=== PATIENT | female | born 1950 | race Caucasian/White ===

== ENCOUNTER 2021-03-30 09:43 | Observation (INO) ==
[2021-03-30] MEDS ORDERED: *HR* Metoprolol 5 MG/5 ML VIAL IVP ONE (10:51)
[2021-03-30] MEDS ORDERED: Furosemide 40 MG/4 ML VIAL IVP ONE (10:51)
[2021-03-30 11:30] LABS: Basophils # 0.1 K/mcL (0.0-0.2); Basophils % 0.6 %; Eosinophils # 0.2 K/mcL (0.0-0.6); Eosinophils % 2.3 %; Hematocrit 28.8 % (35.3-44.9); Hemoglobin 9.3 g/dL (11.5-15.4); Immature Granulocytes % 0.8 % (0-4); Lymphocytes # 0.9 K/mcL (0.6-4.6); Lymphocytes % 9.4 %; Mean Corpuscular HGB Conc 32.3 g/dL (31.6-35.5); Mean Corpuscular Hemoglobin 33.9 pg (28.0-33.3); Mean Corpuscular Volume 105.1 fL (83.0-100.0); Mean Platelet Volume 8.6 fL (9.4-12.4); Monocytes # 0.7 K/mcL (0.0-1.3); Neutrophils # 7.2 K/mcL (1.6-8.9); Platelet Count 330 K/mcL (140-400); Red Blood Count 2.74 M/mcL (3.82-4.97); Red Cell Distribution Width 15.1 % (11.5-14.5); Segmented Neutrophils % 78.9 %; White Blood Count 9.1 K/mcL (4.3-11.1)
[2021-03-30 11:32] LABS: INR 1.6; Prothrombin Time 17.8 Seconds (9.4-12.1)
[2021-03-30 11:48] LABS: BUN/Creatinine Ratio 25 (6-26); Blood Urea Nitrogen 20 mg/dL (8-23); Calcium 8.7 mg/dL (8.6-10.3); Carbon Dioxide 21 mEq/L (23-29); Chloride 106 mEq/L (98-107); Glucose 271 mg/dL (70-105); Osmolality,Calculated 292 (280-300); Potassium 4.8 mEq/L (3.5-5.1); Sodium 135 mEq/L (136-145); Troponin I < 0.03 ng/mL (< 0.04); eGFR For African Americans > 60 (> 60); eGFR For Non-African Americans > 60 (> 60)
[2021-03-30 12:02] LABS: Thyroid Stimulating Hormone 2.172 mcIU/mL (0.340-5.600)
[2021-03-30] MEDS ORDERED: cefTRIAXone 1,000 MG in Water for inj. (sterile) 10 ML IVP ONE (12:40)
[2021-03-30] MEDS ORDERED: Acetaminophen 325 MG TABLET PO PRN (14:13)
[2021-03-30] MEDS ORDERED: Naloxone 0.4 MG/ML INJ IVP PRN (14:13)
[2021-03-30] MEDS ORDERED: Melatonin 3 MG TABLET PO PRN (14:13)
[2021-03-30] MEDS ORDERED: Dextrose Gel 15 GM/37.5 ML TUBE PO PRN ×2 (14:17)
[2021-03-30] MEDS ORDERED: *HR* Dextrose 50 % in Water (Vial) 50 ML VIAL IVP PRN (14:17)
[2021-03-30] MEDS ORDERED: D5% in Water 1,000 ML IVC PRN (14:17)
[2021-03-30] MEDS ORDERED: Perflutren Lipid Microsphere 1.3 ML in 0.9 % Sodium Chloride 8.7 ML IVP PRN (14:18)
[2021-03-30] MEDS ORDERED: Metoprolol XL (24 HR) Succ 25 MG TAB.ER.24H PO ONE (15:29)
[2021-03-30] MEDS ORDERED: Metoprolol XL (24 HR) Succ 25 MG TAB.ER.24H PO SCH (15:30)
[2021-03-30] MEDS: Insulin LISPRO 300 UNITS/3 ML VIAL SUBQ SCH (17:29)
[2021-03-30] MEDS: *HR* Enoxaparin 100 MG/ML SYRINGE SQ SCH (17:30)
[2021-03-30] MEDS ORDERED: Warfarin perPT PO PRN (18:00)
[2021-03-30] MEDS ORDERED: *HR* Warfarin 10 MG TABLET PO ONE (18:00)
[2021-03-30] MEDS ORDERED: Insulin LISPRO 300 UNITS/3 ML VIAL SUBQ SCH (21:00)
[2021-03-30] MEDS: Furosemide 40 MG/4 ML VIAL IVP SCH (21:03)
[2021-03-31 05:26] LABS: Basophils # 0.1 K/mcL (0.0-0.2); Basophils % 0.6 %; Eosinophils # 0.2 K/mcL (0.0-0.6); Eosinophils % 2.9 %; Hematocrit 25.4 % (35.3-44.9); Hemoglobin 8.2 g/dL (11.5-15.4); Immature Granulocytes % 0.7 % (0-4); Lymphocytes # 1.2 K/mcL (0.6-4.6); Lymphocytes % 14.9 %; Mean Corpuscular HGB Conc 32.3 g/dL (31.6-35.5); Mean Corpuscular Hemoglobin 33.9 pg (28.0-33.3); Mean Platelet Volume 8.7 fL (9.4-12.4); Monocytes # 0.6 K/mcL (0.0-1.3); Monocytes % 7.8 %; Platelet Count 315 K/mcL (140-400); Red Blood Count 2.42 M/mcL (3.82-4.97); Red Cell Distribution Width 15.5 % (11.5-14.5); Segmented Neutrophils % 73.1 %; White Blood Count 8.2 K/mcL (4.3-11.1)
[2021-03-31 05:41] LABS: BUN/Creatinine Ratio 21 (6-26); Blood Urea Nitrogen 22 mg/dL (8-23); Calcium 8.3 mg/dL (8.6-10.3); Carbon Dioxide 22 mEq/L (23-29); Chloride 105 mEq/L (98-107); Glucose 133 mg/dL (70-105); Osmolality,Calculated 283 (280-300); Potassium 4.6 mEq/L (3.5-5.1); Sodium 134 mEq/L (136-145); eGFR For African Americans > 60 (> 60); eGFR For Non-African Americans 53 (> 60)
[2021-03-31 05:42] LABS: INR 1.8; Prothrombin Time 20.7 Seconds (9.4-12.1)
[2021-03-31] MEDS: *HR* Enoxaparin 100 MG/ML SYRINGE SQ SCH ×2 (06:05→17:51)
[2021-03-31 06:07] LABS: Estimated Average Glucose 186 mg/dl; Hemoglobin A1C 8.1 %
[2021-03-31] MEDS ORDERED: Metoprolol XL (24 HR) Succ 25 MG TAB.ER.24H PO SCH (09:00)
[2021-03-31] MEDS ORDERED: lisinopriL 10 MG TABLET PO SCH (09:00)
[2021-03-31] MEDS ORDERED: Metoprolol XL (24 HR) Succ 50 MG TAB.ER.24H PO SCH (09:00)
[2021-03-31] MEDS: Insulin LISPRO 300 UNITS/3 ML VIAL SUBQ SCH ×3 (09:07→17:52)
[2021-03-31] MEDS: Furosemide 40 MG/4 ML VIAL IVP SCH ×2 (09:24→17:51)
[2021-03-31] MEDS ORDERED: cefTRIAXone 1,000 MG in 0.9 % Sodium Chloride Mini Bag 100 ML IVPB SCH (13:00)
[2021-03-31] MEDS ORDERED: *HR* LORazepam 0.5 MG TABLET PO PRN (14:41)
[2021-03-31 17:06] LABS: Adenovirus Not Detected (Not Detect); Bordetella Pertussis Not Detected (Not Detect); Chlamydophila pneumoniae Not Detected (Not Detect); Coronavirus 229E Not Detected (Not Detect); Coronavirus HKU1 Not Detected (Not Detect); Coronavirus NL63 Not Detected (Not Detect); Coronavirus OC43 Not Detected (Not Detect); Human Metapneumovirus Not Detected (Not Detect); Human Rhinovirus/Enterovirus Not Detected (Not Detect); Influenza A Subtype 2009 H1 Not Detected (Not Detect); Influenza B Not Detected (Not Detect); Mycoplasma pneumoniae Not Detected (Not Detect); Parainfluenza Virus 1 Not Detected (Not Detect); Parainfluenza Virus 2 Not Detected (Not Detect); Parainfluenza Virus 3 Not Detected (Not Detect); Parainfluenza Virus 4 Not Detected (Not Detect); Respiratory Syncytial Virus Not Detected (Not Detect); SARS-CoV-2 Not Detected (Not Detect)
[2021-03-31] MEDS ORDERED: *HR* Warfarin 5 MG TABLET PO ONE (18:00)
[2021-03-31 19:58] VITALS: BP 127/71; PULSE 111; TEMP 98.5; O2SAT 96
== END 2021-03-31 21:20 | disposition short-term general hospital (02) ==
LOC: EMEROOARM 09:43 → 3NENU 09:43 → SUATTDRO 13:09 → 3NENU 14:15
PROVIDERS: ADMIT Internal Medicine; ATTEND Pharmacist

== ENCOUNTER 2021-09-02 05:40 | Inpatient (IN) ==
[2021-09-02] MEDS ORDERED: *HR* Heparin 5,000 UNIT/ML VIAL IVP ONE (06:08)
[2021-09-02] MEDS ORDERED: *HR* Heparin 5,000 UNIT/ML VIAL IVP PRN ×2 (06:08)
[2021-09-02] MEDS ORDERED: Ondansetron 4 MG/2 ML VIAL IVP PRN (06:08)
[2021-09-02] MEDS ORDERED: Melatonin 3 MG TABLET PO PRN (06:08)
[2021-09-02] MEDS ORDERED: Acetaminophen 325 MG TABLET PO PRN (06:08)
[2021-09-02] MEDS ORDERED: Naloxone 0.4 MG/ML INJ IVP PRN (06:08)
[2021-09-02] MEDS ORDERED: Saline Nasal Spray 44 ML BOTTLE NS PRN (06:09)
[2021-09-02] MEDS ORDERED: Saliva Stimulant 44.3ml BOTTLE PO PRN (06:09)
[2021-09-02 07:20] LABS: Hematocrit 30.5 % (35.3-44.9); Hemoglobin 10.4 g/dL (11.5-15.4); Lymphocytes # 0.4 K/mcL (0.6-4.6); Lymphocytes % 17.6 %; Mean Corpuscular HGB Conc 34.1 g/dL (31.6-35.5); Mean Corpuscular Hemoglobin 34.2 pg (28.0-33.3); Mean Corpuscular Volume 100.3 fL (83.0-100.0); Mean Platelet Volume 8.9 fL (9.4-12.4); Monocytes # 0.1 K/mcL (0.0-1.3); Monocytes % 4.3 %; Neutrophils # 1.6 K/mcL (1.6-8.9); Platelet Count 138 K/mcL (140-400); Red Blood Count 3.04 M/mcL (3.82-4.97); Red Cell Distribution Width 13.1 % (11.5-14.5); Segmented Neutrophils % 77.1 %; White Blood Count 2.1 K/mcL (4.3-11.1)
[2021-09-02 07:55] LABS: Albumin 3.4 g/dL (3.5-5.7); Bilirubin,Total 0.5 mg/dL (0.3-1.0); Calcium 8.6 mg/dL (8.6-10.3); Globulin 3.5 g/dL (2.4-3.5); Magnesium 2.4 mg/dL (1.6-2.6); Phosphorous 4.3 mg/dL (2.7-4.5); Potassium 4.6 mEq/L (3.5-5.1); Total Protein 6.9 g/dL (6.4-8.9)
[2021-09-02] MEDS ORDERED: *HR* Dextrose 50 % in Water (Syg) 50 ML SYRINGE IVP PRN (08:13)
[2021-09-02] MEDS ORDERED: Dextrose Gel 15 GM/37.5 ML TUBE PO PRN ×2 (08:13)
[2021-09-02] MEDS ORDERED: D5% in Water 1,000 ML IVC PRN (08:13)
[2021-09-02 08:31] LABS: ABG Base Excess -5 mEq/L (-2 to 3); ABG HCO3 20 mEq/L (21-27); ABG Oxygen Saturation 93 % (95-98); ABG PCO2 34 mmHg (35-45); ABG PH 7.38 pH Units (7.32-7.45); ABG PO2 69 mmHg (85-104); ABG TCO2 21 mEq/L (20-26)
[2021-09-02] MEDS: Ipratropium 1 PUFF INHALER IH SCH ×3 (08:38→20:04)
[2021-09-02] MEDS: Heparin 25,000UNIT/250ML 1/2NS 25,000 UNIT/250 ML IV.SOLN IVC SCH (08:42)
[2021-09-02] MEDS: Artificial Tears SOLN 15 ML BOTTLE BOTH EYES SCH ×4 (08:43→20:54)
[2021-09-02] MEDS: Cholecalciferol (D-3) 1,000 UNIT (25MCG) TABLET PO SCH (08:43)
[2021-09-02] MEDS: Multivit/Ca/Min/Fe/FA 1 TAB TABLET PO SCH (08:43)
[2021-09-02] MEDS: Chlorhexidine Rinse 15 ML MOUTHWASH MM SCH ×2 (08:44→20:54)
[2021-09-02] MEDS: 0.9 % Sodium Chloride 1,000 ML IVC SCH ×2 (08:46→20:56)
[2021-09-02] MEDS: Insulin LISPRO 300 UNITS/3 ML VIAL SUBQ SCH ×3 (12:01→20:55)
[2021-09-03] MEDS: Ipratropium 1 PUFF INHALER IH SCH ×5 (04:03→23:44)
[2021-09-03] MEDS: Cholecalciferol (D-3) 1,000 UNIT (25MCG) TABLET PO SCH (08:20)
[2021-09-03] MEDS: Artificial Tears SOLN 15 ML BOTTLE BOTH EYES SCH ×4 (08:20→21:13)
[2021-09-03] MEDS: Multivit/Ca/Min/Fe/FA 1 TAB TABLET PO SCH (08:20)
[2021-09-03] MEDS: Chlorhexidine Rinse 15 ML MOUTHWASH MM SCH ×2 (08:20→21:13)
[2021-09-03] MEDS: Insulin LISPRO 300 UNITS/3 ML VIAL SUBQ SCH ×4 (08:21→21:14)
[2021-09-03] MEDS: Azithromycin 500 MG in 0.9 % Sodium Chloride 250 ML IVPB SCH (09:25)
[2021-09-03] MEDS: cefTRIAXone 1,000 MG in Water for inj. (sterile) 10 ML IVP SCH (09:53)
[2021-09-03 10:05] LABS: Basophils % 0.1 %; Hematocrit 30.6 % (35.3-44.9); Hemoglobin 9.9 g/dL (11.5-15.4); Immature Granulocytes % 0.8 % (0-4); Lymphocytes # 0.3 K/mcL (0.6-4.6); Lymphocytes % 3.6 %; Mean Corpuscular HGB Conc 32.4 g/dL (31.6-35.5); Mean Platelet Volume 8.7 fL (9.4-12.4); Monocytes # 0.4 K/mcL (0.0-1.3); Monocytes % 4.9 %; Platelet Count 154 K/mcL (140-400); Red Cell Distribution Width 13.2 % (11.5-14.5); Segmented Neutrophils % 90.6 %
[2021-09-03 10:06] LABS: Neutrophils # 6.4 K/mcL (1.6-8.9); White Blood Count 7.1 K/mcL (4.3-11.1)
[2021-09-03 10:27] LABS: Albumin 3.3 g/dL (3.5-5.7); Bilirubin,Total 0.4 mg/dL (0.3-1.0); Calcium 8.3 mg/dL (8.6-10.3); Globulin 3.4 g/dL (2.4-3.5); Potassium 4.6 mEq/L (3.5-5.1); Total Protein 6.7 g/dL (6.4-8.9)
[2021-09-03] MEDS: Heparin 25,000UNIT/250ML 1/2NS 25,000 UNIT/250 ML IV.SOLN IVC SCH (10:56)
[2021-09-03] MEDS ORDERED: 0.9 % Sodium Chloride 1,000 ML IVC SCH (15:00)
[2021-09-04] MEDS: Ipratropium 1 PUFF INHALER IH SCH ×4 (03:59→16:35)
[2021-09-04 05:36] LABS: Hematocrit 26.7 % (35.3-44.9); Hemoglobin 8.7 g/dL (11.5-15.4); Immature Granulocytes % 2.1 % (0-4); Lymphocytes # 0.3 K/mcL (0.6-4.6); Lymphocytes % 5.8 %; Mean Corpuscular HGB Conc 32.6 g/dL (31.6-35.5); Mean Corpuscular Hemoglobin 33.1 pg (28.0-33.3); Mean Corpuscular Volume 101.5 fL (83.0-100.0); Mean Platelet Volume 9.1 fL (9.4-12.4); Monocytes # 0.3 K/mcL (0.0-1.3); Monocytes % 6.5 %; Neutrophils # 3.7 K/mcL (1.6-8.9); Platelet Count 127 K/mcL (140-400); Red Blood Count 2.63 M/mcL (3.82-4.97); Red Cell Distribution Width 13.2 % (11.5-14.5); Segmented Neutrophils % 85.6 %; White Blood Count 4.3 K/mcL (4.3-11.1)
[2021-09-04 05:57] LABS: Bilirubin,Total 0.4 mg/dL (0.3-1.0); Calcium 8.2 mg/dL (8.6-10.3); Globulin 2.9 g/dL (2.4-3.5); Potassium 4.2 mEq/L (3.5-5.1); Total Protein 5.9 g/dL (6.4-8.9)
[2021-09-04] MEDS: Cholecalciferol (D-3) 1,000 UNIT (25MCG) TABLET PO SCH (08:41)
[2021-09-04] MEDS: cefTRIAXone 1,000 MG in Water for inj. (sterile) 10 ML IVP SCH (08:41)
[2021-09-04] MEDS: Multivit/Ca/Min/Fe/FA 1 TAB TABLET PO SCH (08:41)
[2021-09-04] MEDS: Chlorhexidine Rinse 15 ML MOUTHWASH MM SCH (08:42)
[2021-09-04] MEDS: Azithromycin 500 MG in 0.9 % Sodium Chloride 250 ML IVPB SCH (08:42)
[2021-09-04] MEDS: Artificial Tears SOLN 15 ML BOTTLE BOTH EYES SCH ×2 (08:43→12:30)
[2021-09-04] MEDS: Insulin LISPRO 300 UNITS/3 ML VIAL SUBQ SCH ×2 (08:44→12:29)
[2021-09-04 12:23] VITALS: BP 111/68; PULSE 83; TEMP 97.5
[2021-09-04 16:37] VITALS: O2SAT 98
== END 2021-09-04 17:30 | disposition home health service (06) | DRG 177 ==
LOC: 3NENU → SUATTDRO 05:40
PROVIDERS: ADMIT Internal Medicine; ATTEND Family Medicine